=== PATIENT | female | born 2005 | race Caucasian/White ===

== ENCOUNTER → 2024-05-01 | Outpatient (CLI) | payer OTHER ==
[2024-05-01 16:32] LABS: PROLACTIN 10.8 ng/mL (5.18-26.53); TSH w REFLEX 0.969 uIU/mL (0.350-4.940)
[2024-05-01 22:56] LABS: FOLLICLE STIMULATING HORMONE 7.1 mIU/mL (())
[2024-05-06 14:09] LABS: TESTOSTERONE, BIOAVAIL LC-MS 3.4 ng/dL (0.0-9.5)
== END ==
LOC: COL.LAB 15:12
DX: N93.9 Abnormal uterine and vaginal bleeding, unspecified (principal)